=== PATIENT | male | born 1975 | race Caucasian/White ===

== ENCOUNTER 2019-05-18 08:12 | Emergency (ER) | payer MEDICAID ==
[~2019-05-18] VITALS: Ht 177.8 cm; Wt 80.0 kg
[2019-05-18 08:14] VITALS: BP 140/102
== END 2019-05-18 10:24 | disposition home or self-care (01) ==
LOC: ER 08:13
DX: S90.31XA Contusion of right foot, initial encounter (principal); M25.462 Effusion, left knee; M79.671 Pain in right foot; M25.562 Pain in left knee; W17.89XA Other fall from one level to another, initial encounter; Y93.89 Activity, other specified; Y92.89 Other specified places as the place of occurrence of the external cause; Y99.8 Other external cause status
CPT/HCPCS: 29505; 73564; 73630; 99283

== ENCOUNTER → 2019-06-04 | Outpatient (CLI) | payer MEDICAID ==
[2019-06-04 11:59] VITALS: BP 150/101
== END | disposition home or self-care (01) ==
LOC: ORTHO 09:37
PROVIDERS: ATTEND Nurse Practitioner
DX: S83.8X2A Sprain of other specified parts of left knee, initial encounter (principal); S90.32XA Contusion of left foot, initial encounter; S90.31XA Contusion of right foot, initial encounter; W17.89XA Other fall from one level to another, initial encounter; Y93.89 Activity, other specified; Y92.89 Other specified places as the place of occurrence of the external cause; Y99.8 Other external cause status
CPT/HCPCS: G0463